=== PATIENT | female | born 1960 | race Caucasian/White ===

== ENCOUNTER 2023-03-17 08:34 | Outpatient (REF) | payer MEDICAID, SELFPAY ==
[2023-03-17 12:15] LABS: TSH reflex Free T4 7.96 uIU/mL (0.32-4.0)
[2023-03-17 13:02] LABS: Free T4 (Free Thyroxine) 1.04 ng/dL (0.71-1.85)
== END 2023-03-17 08:35 | disposition home or self-care (01) ==
LOC: HO.HHCL 08:34
PROVIDERS: Visit Provider Internal Medicine Geriatric Medicine
DX: E03.9 Hypothyroidism, unspecified (principal)
CPT/HCPCS: 36415; 84439; 84443

== ENCOUNTER 2023-11-16 10:38 | Outpatient (REF) | payer MEDICAID, SELFPAY ==
[2023-11-16 11:36] LABS: MANUAL DIFF FLAG NO
[2023-11-16 11:52] LABS: Basophils Absolute Auto 0.1 X10*3/uL (0.0-0.2); Basophils Percent Auto 0.9 % (0-2); Eosinophils Absolute Auto 0.4 X10*3/uL (0.0-0.4); Eosinophils Percent Auto 7.1 % (0-4); Hematocrit 39.3 % (37.0-47.0); Hemoglobin 12.9 g/dl (12.0-16.0); Imm Gran Abs Auto 0.01 X10*3/uL (0.00-0.03); Imm Gran Pct Auto 0.2 % (0.0-0.4); Lymphocytes Absolute Auto 2.2 X10*3/uL (1.2-4.9); Lymphocytes Percent Auto 40.2 % (20-40); Mean Corpuscular HGB Conc 32.8 g/dl (31.0-35.0); Mean Corpuscular Hemoglobin 30.4 pg (27.0-33.0); Mean Corpuscular Volume 92.7 fL (80.0-98.0); Mean Platelet Volume 9.3 fL (9.4-12.3); Monocytes Absolute Auto 0.3 X10*3/uL (0.1-1.2); Monocytes Percent Auto 5.8 % (2-11); Neutrophils Absolute Auto 2.5 x10*3/uL (2.0-8.3); Neutrophils Percent Auto 45.8 % (45-73); Platelet Count 272 X10*3/uL (160-400); Red Blood Count 4.24 X10*6/uL (4.20-5.50); Red Cell Distribution Width 12.9 % (11.0-16.0); White Blood Count 5.5 X10*3/uL (4.8-10.8)
[2023-11-16 17:31] LABS: Alanine Aminotransferase 13 U/L (0-31); Albumin Level 4.2 g/dL (3.5-5.0); Alkaline Phosphatase 57 U/L (39-117); Anion Gap 11 (12-20); Aspartate Amino Transferase 15 U/L (5-31); Bilirubin Total 0.2 mg/dL (0.0-1.0); Blood Urea Nitrogen 18 mg/dL (9-16); Calcium 9.4 mg/dL (8.4-10.2); Carbon Dioxide 26 mmol/L (22-29); Chloride 109 mmol/L (96-108); Cholesterol 210 mg/dL (<200); Estimated Glomerular Filt Rate > 60; Glucose Random 97 mg/dL (60-115); HDL Cholesterol 48 mg/dL (>40); LDL Cholesterol Calculated 147 mg/dL (<100); Potassium 4.7 mmol/L (3.3-5.1); Sodium 141 mmol/L (135-145); Total Protein 7.3 g/dL (6.5-8.0); Triglycerides 78 mg/dL (<150)
== END 2023-11-16 10:39 | disposition home or self-care (01) ==
LOC: HO.HHCL 10:38
PROVIDERS: Visit Provider Internal Medicine Geriatric Medicine
DX: Z00.00 Encounter for general adult medical examination without abnormal findings (principal); Z13.220 Encounter for screening for lipoid disorders; Z13.1 Encounter for screening for diabetes mellitus; E03.9 Hypothyroidism, unspecified
CPT/HCPCS: 36415; 80053; 80061; 84443; 85025

== ENCOUNTER 2024-05-25 09:21 | Outpatient (REF) | payer MEDICAID, SELFPAY ==
[2024-05-25 11:29] LABS: Alanine Aminotransferase 15 U/L (0-31); Albumin Level 4.3 g/dL (3.5-5.0); Alkaline Phosphatase 59 U/L (39-117); Aspartate Amino Transferase 23 U/L (5-31); Bilirubin Direct 0.1 mg/dL (0.0-0.5); Bilirubin Total 0.4 mg/dL (0.0-1.0); Cholesterol 211 mg/dL (<200); HDL Cholesterol 51 mg/dL (>40); LDL Cholesterol Calculated 136 mg/dL (<100); Total Protein 7.4 g/dL (6.5-8.0); Triglycerides 122 mg/dL (<150)
== END 2024-05-25 09:22 | disposition home or self-care (01) ==
LOC: HO.HHCL 09:21
PROVIDERS: Visit Provider Internal Medicine Geriatric Medicine
DX: E78.00 Pure hypercholesterolemia, unspecified (principal)
CPT/HCPCS: 36415; 80061; 80076

== ENCOUNTER 2024-10-16 12:08 | Outpatient (REF) | payer MEDICAID, SELFPAY ==
--- NOTE | ~2024-10-16 | XR_ITS ---
EXAMINATION: XR LUMBAR SPINE 2-3 VIEWS HISTORY: PAIN COMPARISON: There are no prior studies for comparison. FINDINGS: AP, lateral, and coned down views of the lumbar spine are submitted. Osseous mineralization is normal. There is diffuse mild to moderate degenerative disc disease with disc space narrowing and osteophyte formation. Vacuum phenomenon is also seen at multiple levels. 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 The visualized paraspinal soft tissues are unremarkable. XR/XR lumbar spine 2-3V IMPRESSION: Degenerative changes of the lumbar spine as described. Electronically signed by: Rah Price MD 10/16/2024 01:04 PM EDT
--- OUTSIDE RECORDS SUMMARY | 2024-10-16 14:20 | XMS_ITS | Encounter Summary ---
Author Organization [employer] Address [address] [place] [address] [facility] [place] [address] Care Team Providers Care Printed Circuit Board Panels Developer Name Role Phone Juan A Driscoll MD Primary Care Provider [phone] Reason for Referral * Consultation (Routine) - Pending Review Specialty Diagnoses / Procedures Referred By Anahy lares Referred To Contact Physical Therapy Diagnoses Chronic bilateral low back pain without sciatica Juan A Driscoll MD [address] [place] [phone] Phone: tel: fax: Referral ID Status Reason Start Date Expiration Date Visits Requested Visits Authorized [id number] Pending Review Specialty Services Required 10/16/2024 10/16/2025 1 1 Reason for Visit * Reason Comments Hypertension Encounter Details Date Type Department Care Team ([facility] st Contact Info) Description 10/16/2024 11:15 AM EDT Office Visit [facility] [address] [place] [address] [phone] Juan A Driscoll MD [address] [place] [phone] Essential hypertension (Primary Dx); Acquired hypothyroidism; Screen for colon cancer; Encounter for immunization; Chronic bilateral low back pain without sciatica Social History Tobacco Use Types Packs/Day Years Used Date Smoking Tobacco: Never Smokeless Tobacco: Never Tobacco Cessation:Counseling Given: Not Answered Alcohol Use Standard Drinks/Week Comments Never 0 (1 standard drink = 0.6 oz pur e alcohol) Depression Answer Date Recorded Patient Health Questionnaire-9 Score 4 10/16/2024 Patient Health Questionnaire-9 Score 4 10/16/2024 Last PHQ-9: Questionnaire Data Not on file 0 10/16/2024 Housing Stability Answer Date Recorded What is your housing situation today? I have rl king 11/08/[address] you li ve. Do you have problems with any of the following? None of the above 11/08/2023 Food Insecurity Answer Date Recorded Within the past 12 months, y ou worried that your food would run out before you got money to buy more: Never True 11/08/2023 Within the past 12 months,th e food you bought just didn't last and you didn't have enough money to get more: Never True 03/2024 Transportation Answer Date Recorded In the past 12 months, has l ack of transportation kept you from medical appts, meetings, work or from getting things needed for daily living? No 11/08/2023 Utilities Answer Date Recorded In the past 12 months, has t he electric, gas, oil or water company threatened to shut off services in your home? No 11/08/2023 Depression Answer Date Recorded Patient Health Questionnaire-2 Score 0 10/16/2024 Internet Access Answer Date Recorded Internet Access Q1 Yes 10/16/2024 Internet Access Q2 Not on file 10/16/2024 Comments Unknown Sex and Gender Information Value Date Recorded Sex Assigned at Female 06/01/2022 10:29 AM EDT Legal Sex Female 10:29 AM EDT Gender Identity Female 06/01/2022 10:29 AM EDT Sexual Orientation Straight 06/01/2022 10 :29 AM EDT documented as of this encounter Last Filed Vital Signs Vital Sign Reading Time Taken Comments Blood Pressure 135/82 10/16/2024 11:36 AM EDT Pulse 86 10/16/2024 11:08 AM EDT Temperature 37 ??C (98.6 ??F) 10/16/2024 11: 08 AM EDT Respiratory Rate 18 10/16/2024 11:0 8 AM EDT Oxygen Saturation 95% 10/16/2024 11: 08 AM EDT Inhaled Oxygen Concentration - - Weight 65.2 kg (143 lb 12.8 oz) 025 11:08 AM EDT Height 157.5 cm (5' 2 ) 10/16/2024 11:0 8 AM EDT Body Mass Index 26.3 10/16/2024 11:08 AM EDT documented in this encounter Progress Notes * Juan A Driscoll, - 10/16/2024 11:15 AM EDT Subjective Patient ID: Gema Davila is a 64 y.o. female who presents for Hypertension. Patient comes for a follow-up visit. Her BP was initially elevated. Repeat blood pressure was normal. She explains to me that she recently returned from [place]. She was staying in [place] for about 3 months taking care of her sister that unfortunately recently of colon cancer. The patient missed her precolonoscopy appointment with GI because she was in [place]. She denies any GIproblems. She tells me the only medication she is using regularly is her levothyroxine. She stoppedusing her statin for primary pressure of cardiovascular disease and she is encouraged to restart. The patient also complains of several months of low back pain. The patient tells me she slipped andfell on her buttocks while she was staying in [place]. She is having low back pain since then. She describes occasional radiation of the pain to both buttocks. She does not have any weakness, no fevers or chills, no associated GI or complaints. Pain is exacerbated by weightbearing activities and movements of the low back. She tells me she had negative x-rays of the back done in [place]. Review of Systems Constitutional: Negative for chills and fever. HENT: Negative for sore throat. Respiratory: Negative for cough, shortness of breath and wheezing. Cardiovascular: Negative for chest pain, palpitations and leg swelling. Gastrointestinal: Negative for abdominal pain. Musculoskeletal: Positive for back pain. Visit Vitals BP 135/82 Pulse 86 Temp 98.6 ??F (37 ??C) (Temporal) Resp 18 Ht 5' 2 (1.575 m) Wt 143 lb 12.8 oz (65.2 kg) SpO2 95% BMI 26.30 kg/m?? Smoking Status Never BSA 1.69 m?? Objective Physical Exam Constitutional: Appearance: Normal appearance. Cardiovascular: Rate and Rhythm: Normal rate and regular rhythm. Heart sounds: No murmur heard. No gallop. Pulmonary: Effort: Pulmonary effort is normal. No respiratory distress. Breath sounds: Normal breath sounds. No wheezing. Musculoskeletal: Lumbar back: Spasms and tenderness present. Right lower leg: No edema. Left lower leg: No edema. Neurological: Mental Status: She is alert. Motor: No weakness. Gait: Gait normal. Assessment/Plan Diagnoses and all orders for this visit: Essential hypertension Comments: Repeat BP is normal. I did not recommend any medication. In the past she had low blood pressure at home when I put her on antihypertensives. Acquired hypothyroidism Comments: Continue levothyroxine and recheck TSH Orders: - TSH W/Reflex to FT4; Future Screen for colon cancer Comments: Miseed several appointment with GI. She has family history of colon CA. I will have my MA call [facility] to see when she can be seen Encounter for immunization Comments: PCV 20 vaccine today Orders: - PCV-20 VACCINE 6 wks + Chronic bilateral low back pain without sciatica Comments: Referral to physical therapy. X-ray of the lumbar spine prior to PT evaluation Orders: - XR Lumbar Spine Complete 4+ Views; Future - Referral to Physical Therapy; Future documented in this encounter Plan of Treatment Upcoming Encounters Date Type Department Care Team (Late st Contact Info) Description 01/24/2025 10:00 AM EDT Office Visit [facility] [address] [place] [address] Juan A Driscoll MD [address] [place] [address] Scheduled Orders Name Type Priority Associated Diagnoses Orde r Schedule TSH W/Reflex to FT4 Lab Routine Acquired hypothyroidism Expected: 10/16/2024 (Approximate), Expires: 10/16/2025 XR Lumbar Spine Complete 4+ Views Imaging Routine Chronic bilateral low back pain without sciatica Expected: 10/16/2024, Expires: 10/16/2025 Scheduled Referrals Name Type Priority Associated Diagnoses Orde r Schedule Referral to Physical Therapy Outpatient Referral Routine Chronic bilateral low back pain without sciatica Expected: 10/16/2024 (Approximate), Expires: 10/16/2025 documented as of this encounter Goals Goal Patient Goal Type Associated Problems Recent Progress Patient-Stated? Author Blood Pressure < 140/90 Blood Pressure 135/82(2024 11:36 AM EDT) No Johanna Almonte, PharmD Record your blood pressure periodically. Blood Pressure No Johanna Almonte PharmD Note: SMBP two to three times weekly, as directed. documented as of this encounter Visit Diagnoses Diagnosis Essential hypertension- Primary Unspecified essential hypertension Acquired hypothyroidism Unspecified hypothyroidism Screen for colon cancer Special screening for malignant neoplasms, colon Encounter for immunization Chronic bilateral low back pain without sciatica documented in this encounter Additional Health Concerns Assessment Noted Time PHQ-9 Depression Total Score: 4 10/17/19 11:43 AM EDT documented as of this encounter Care Teams Printed Circuit Board Panels Developer Relationship Specialty Start Date End Date Name, MD Juan A [address] [place] [address] PCP - General Family Medicine 08/02/18 documented as of this encounter
--- OUTSIDE RECORDS SUMMARY | 2024-10-16 14:20 | XMS_ITS | Clinical Summary ---
Author Organization [employer] Address [address] [place] [address] 7[address] [place] [address] Care Team Providers Care Scheduling Specialist Name Role Phone Name, Juan A HO Primary Care Provider [phone] Allergies No known active allergies Medications Diclofenac Sodium 1 % gel USE ONCE A DAY ON THE ANTERIOR LEFT KNEE 100 g 2 3 Active levothyroxine (Synthroid, Levoxyl) 112 MCG tablet TAKE 1 TABLET BY MOUTH BEFORE BREAKFAST 90 tablet 3 4 Active atorvastatin (Lipitor) 20 MG tablet Take 1 tablet (20 mg) by mouth Once per day. 30 tablet 11 4 10/17/19 25 Discontinu ed(Non-com pliance) Active Problems Problem Noted Date Diagnosed Date Varicose veins of bilateral lower extremities wi th pain 03/20/2024 High cholesterol 02/29/2024 Venous insufficiency 11/16/2023 Family history of colon cancer 03/16/2023 Essential hypertension 07/19/2022 Mixed incontinence 04/03/2021 DJD (degenerative joint disease) of knee 018 Recurrent major depression in partial remission 10/20/2016 Acquired hypothyroidism 09/25/2015 Resolved Problems Problem Noted Date Diagnosed Date Resolved Date Leg swelling 03/20/2024 10/16/2024 Digital mucous cyst 07/19/2022 11/16/19 24 Encounters Date Type Department Care Team Description 10/16/2024 11:15 AM EDT Office Visit [facility] [address] [place] [address] Name, MD Juan A Essential hypertension (Primary Dx); Acquired hypothyroidism; Screen for colon cancer; Encounter for immunization; Chronic bilateral low back pain without sciatica 10/16/2024 Orders Only [facility] [address] [place] [address] Name, MD Juan A 10/16/2024 Travel from Last 3 Months Immunizations Name Administration Dates Next Due INFLUENZA INJECTABLE QUADRIV ALANT CCIIV4 MDCK Multi-dose vial 06/01/2018 Influenza injectable quadriv alent IIV4 with preservative 07/18/2019 Influenza injectable quadriv alent preservative free 07/22/2021,05/29/2020,05/27/2017,2015,06/17/2015 Influenza, IIV3, injectable 06/17/2015,0 08/29/2012,04/08/2011,2009,08/15/2009 Influenza, seasonal, injecta ble, preservative free 05/09/2024 Pfizer Covid-19 Vaccine 12+ 05/31/2024,1 09/22/2020,12/19/2020,2020 Pfizer Covid-19 Vaccine 12+ Bivalent 10/26/2022 Pneumococcal Conjugate PCV 20 10/16/2024 TD (adult), 2 Lf tetanus tox oid, preservative free, adsorbed 07/18/2019 Tdap 08/15/2007 Zoster, Recombinant 01/19/2023,05/08/2022 Family History Medical History Relation Name Comments Colon cancer Sister Relation Name Status Comments Sister Social History Tobacco Use Types Packs/Day Years [...] Orientation Straight 06/01/2022 10 :29 AM EDT Last Filed Vital Signs Vital Sign Reading [...] Mass Index 26.3 10/16/2024 11:08 AM EDT Plan of Treatment Upcoming Encounters Date Type Department Care Team (Late st Contact Info) Description 01/24/2025 10:00 AM EDT Office Visit [facility] [address] [place] [address] Name, MD Juan A [address] [place] [address] Health Maintenance Due Date Last Done Comments CT Colonography 1959 Colonoscopy 1960 Colorectal Cancer Screening 1960 FIT DNA/Cologuard 1959 FIT 1959 FOBT 1960 Sigmoidoscopy 1959 Alcohol/Substance Use Screening 1971 Mammogram 05/11/2025 05/11/2024, 1004/2023, 02/07/2022 Depression Screening 10/16/2025 10/16/2024, 10/17/19 25 SDOH Screening 10/16/2025 10/16/2024 Tobacco Screening 10/16/2025 10/16/2024 Cervical Cancer Screening 04/03/2026 HPV/Cotest 04/03/2026 04/03/2021 Pap Smear 04/03/2026 04/03/2021 Lipid Panel 05/25/2029 05/25/2024, 10/31, 10/26/2022, Additional history exists DTaP/Tdap/Td Vaccines (3 - Td or Tdap) 07/18/2029 07/18/2019, 08/15/2007 RSV Patients and Patients Aged 60 years or older (1 - 1-dose 75+ series) 2034 Hepatitis C Screening Completed 07/28/2021 Zoster Vaccines Completed 01/19/2023, 05/08/2022 Influenza Vaccine Completed 05/09/2024, , 05/29/2020, Additional history exists COVID-19 Vaccine Completed 05/31/2024, , 02/08/2022, Additional history exists Pneumococcal Vaccine: 50+ Years Completed 10/16/2024 HIB Vaccines Aged Out No longer eligi ble based on patient's age to complete this topic HPV Vaccines Aged Out No longer eligi ble based on patient's age to complete this topic Hepatitis A Vaccines Aged Out No long er eligible based on patient's age to complete this topic Hepatitis B Vaccines Aged Out No long er eligible based on patient's age to complete this topic IPV Vaccines Aged Out No longer eligi ble based on patient's age to complete this topic Meningococcal Vaccine Aged Out No moshe jose j eligible based on patient's age to complete this topic RSV under 20 months Aged Out No longe r eligible based on patient's age to complete this topic Rotavirus Vaccines Aged Out No longer eligible based on patient's age to complete this topic Goals Goal Patient Goal Type Associated Problems Recent Progress Patient-Stated? Author Blood Pressure < 140/90 Blood Pressure 135/82(2024 11:36 AM EDT) No Johanna Almonte PharmD Record your blood pressure periodically. Blood Pressure No Johanna Almonte, Mini Note: SMBP two to three times weekly, as directed. Procedures Procedure Name Priority Date/Time Associated Diagnosis Comments XR LUMBAR SPINE 2-3 VIEWS Routine 10/16/2024 12:09 PM EDT LIPID PANEL, STANDARD Routine 05/25/2024 9:25 AM EDT HM MAMMOGRAPHY Routine 05/11/2024 ZZZ HISTORICAL HEPATITIS C AB W/REFL TO HCV RNA, QN, PCR Routine 07/28/2021 8:36 AM EST HPV MRNA E6/E7 Routine 04/03/2021 10:30 AM EDT THINPREP PAP Routine 04/03/2021 10:30 AM EDT from Last 3 Months or Most Recently Relevant to Health Maintenance Results * XR Lumbar Spine 2-3 Views (10/16/2024 12:09 PM EDT) Anatomical Region Laterality Modality Spine, L-spine Radiographic Kimmy ging 10/16/2024 12:0 9 PM EDT Narrative 10/16/2024 1:07 PM EDT ?[facility] ?[address] ?[place] [address] ?XRay Report ? Signed ? Patient: Jesus Davila,[place] ?MR#: [id number] ?? [id number] ? : 1960 ?Acct:[id number] ? Age/Sex: 64 / F ?ADM Date: 03/17/25 ? Loc: HO.HHCX ? Attending Dr: Juan A Driscoll MD ? Ordering Physician: Juan A Driscoll MD ?? Date of Service: 10/16/24 ?? Procedure(s): XR lumbar spine 2-3V ?? Accession Number(s): [id number] ? cc: Name,Juan A HO ? EXAMINATION: ??XR LUMBAR SPINE 2-3 VIEWS ? HISTORY: PAIN ? COMPARISON: There are no prior studies for comparison. ? FINDINGS: ??AP, lateral, and coned down views of the lumbar spine are ?? submitted. ??Osseous mineralization is normal. ??There is diffuse mild to ?? moderate degenerative disc disease with disc space narrowing and ?? osteophyte formation. ??Vacuum phenomenon is also seen at multiple ?? levels. ??There is osteoarthritis of the lower lumbar facet joints. ??The ?? visualized paraspinal soft tissues are unremarkable. ? XR/XR lumbar spine 2-3V ?? IMPRESSION: ?? Degenerative changes of the lumbar spine as described. ? Electronically signed by: ??Rah Price MD ??10/16/2024 01:04 PM EDT ? Dictated By: ?Rah Price MD ? Signed By: ?<Electronically signed by Rah Price MD in OV> ?10/16/24 1304 ? DD/ 1209 ? TD/TT: 10/16/24 1215 ? Jig Boring Machine Set Up Operator: ? Procedure Note Alejandra, Shagufta - 10/16/2024 [place] [address] XRay Report Signed Patient: eGma HerreraMR#: [id number] : 1960Acct:[id number] Age/Sex: 64 / FADM Date: 10/16/24 Loc: HO.HHCX Attending Dr: Juan A Driscoll MD Ordering Physician: Juan A Driscoll MD Date of Service: 10/16/24 Procedure(s): XR lumbar spine 2-3V Accession Number(s): [id number] cc: Juan A Driscoll MD EXAMINATION: XR LUMBAR SPINE 2-3 VIEWS HISTORY: PAIN COMPARISON: There are no prior studies for comparison. FINDINGS: AP, lateral, and coned down views of the lumbar spine are submitted. Osseous mineralization is normal. There is diffuse mild to moderate degenerative disc disease with disc space narrowing and osteophyte formation. Vacuum phenomenon is also seen at multiple levels. 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 The visualized paraspinal soft tissues are unremarkable. XR/XR lumbar spine 2-3V IMPRESSION: Degenerative changes of the lumbar spine as described. Electronically signed by: Rah Price MD 10/16/2024 01:04 PM EDT RP Dictated By: Rah Price MD Signed By: <Electronically signed by Rah Price MD in OV> 10/16/24 1304 DD/ 1209 TD/TT: 10/16/24 1215 Jig Boring Machine Set Up Operator: us Juan A Driscoll MD IMG XR PROCEDURES Final Result * (ABNORMAL) Lipid Panel, Standard (05/25/2024 9:25 AM EDT) Triglycerides 122 <150 mg/dL [facility] Comment:Desirable Triglyceri de: less than 150 mg/dLBorderline High Triglyceride 150-199 mg/dLHigh Triglyceride: 200-499 mg/dLVery High Triglyceride: greater than or equal to 5OO mg/dL Cholesterol 211(H) <200 mg/dL [facility] Comment:Desirable Cholestero l: less than 200 mg/dLBorderline High Cholesterol: 200-239 mg/dLHigh Cholesterol: greater than 239 mg/dL LDL Cholesterol Calculated 136(H) <100 mg/dL [facility] Comment:Desirable LDL: less than 100 mg/dLNear Optimal/Above Optimal LDL: 110- 129 mg/dLBorderline High LDL: 130-159 mg/dLHigh LDL: 160-189 mg/dLVery High LDL: greater than or equal to 190 mg/dL HDL Cholesterol 51 >40 mg/dL [facility] Comment:Desirable HDL: great er than 40 mg/dL Note: This HDL assay may give artificially low results in patients with liver disease. 05/25/2024 9:25 AM EDT 05/25/2024 10:59 AM EDT us Juan A Driscoll MD LAB BLOOD ORDERABLES Final Resul t [facility] [address] [place] [address] [place] [address] [phone] * Mammography (05/11/2024) Pathologist [facility] Mammogram Normal Normal, Abnormal, BIRADS 1 , BIRADS 2 Anatomical Region Laterality Modality Other 05/11/2024 us Juan A Driscoll MD HEALTH MAINTENANCE Final Result * HEPATITIS C AB W/REFL TO HCV RNA, QN, PCR (07/28/2021 8:36 AM EST) [facility] HEPATITIS C ANTIBODY NON-REACT PELON NON-REACT PELON [facility] INDEX 0.01 <1.00 [facility] Comment: ?? HCV antibody was non-reactive. There is no laboratory ?? evidence of HCV infection. ?? In most cases, no further action is required. However, if recent HCV exposure is suspected, a test for HCV RNA (test code 02016) is suggested. ?? For additional information please refer to http://education.[employer]/faq/JFN67n8 (This link is being provided for informational/ educational purposes only.) ?? 07/28/2021 8:36 AM EST us Juan A Driscoll MD HISTORICAL/NON ORDERABLE LABS Fi nal Result [facility] [address] * THINPREP PAP (04/03/2021 10:30 AM EDT) [facility] Clinical Information: [facility] COMMENT SEE COMMENT [facility] Comment: EXPLANATORY NOTE: ? The Pap is a screening test for cervical cancer. It is ?? not a diagnostic test and is subject to false negative ?? and false positive results. It is most reliable when a ?? satisfactory sample, regularly obtained, is submitted ?? with relevant clinical findings and history, and when ?? the Pap result is evaluated along with historic and ?? current clinical information. ?? Door Maker : SEE COMMENT [facility] Comment: GSG, CT(ASCP) CT screening location: [address] ??[address] Interpretation/R esult: Negative for intraepithelial lesion or malignancy. [facility] LMP: NONE [facility]IVEN [facility] Prev. BX: NONE [facility] Prev. PAP: NONE [facility]IV[facility] SOURCE: None given [facility] Statement Of Adequacy: SEE COMMENT [facility] Comment: Satisfactory for evaluation. Endocervical/transformation zone component present. 04/03/2021 10:3 0 AM EDT Jany [facility] LAB PATHOLOGY ORDERABLES Final Result Performing Organization Address [facility] de Phone Number [facility] [address] * HPV mRNA E6/E7 (04/03/2021 10:30 AM EDT) HPV nRNA E6/E7 Not Detected Not Detected [facility] Comment: Methodology: Transit Survey Worker-Mediated Amplification This assay detects E6/E7 viral messenger RNA (mRNA) from 14 high-risk HPV types (16,18,31,33,35,39,45,51,52,56,58,59,66,68). ? The analytical performance characteristics of this assay have been determined by [employer]. The modifications have not been cleared or approved by the FDA. This assay has been validated pursuant to the CLIA regulations and is used for clinical purposes. ?? For additional information, please refer to http://education.nodishes.co.uk.[employer]/faq/SOZ420k7 (This link if provided for information/ educational purposes only.) 04/03/2021 10:3 0 AM EDT Jany [facility] LAB BLOOD ORDERABLES Katt l Result Performing Organization Address [facility] Co de Phone Number [facility] [address] from Last 3 Months or Most Recently Relevant to Health Maintenance Insurance [facility] , [address] [address] [employer] [place] [employer]AC[employer] PPO Care Teams Scheduling Specialist Relationship Specialty Start Date End Date Name, MD Juan A [address] [place] [id number] PCP - General Family Medicine 08/02/18
--- OUTSIDE RECORDS SUMMARY | 2024-10-16 14:20 | XMS_ITS | Encounter Summary ---
Author Organization [employer] Address [address] [facility] 7t [place] [address] Care Team Providers Care Framing Mechanic Name Role Phone Name, Juan A HO Primary Care Provider [phone] Encounter Details Date Type Department Care Team (Latest Contact Info) Description 10/16/2024 Travel Social History Tobacco Use Types Packs/Day Years Used Date Smoking Tobacco: Never Smokeless Tobacco: Never Alcohol Use Standard Drinks/Week Comments Never 0 [...] AM EDT documented as of this encounter Plan of Treatment Upcoming Encounters Date Type Department Care Team (Late st Contact Info) Description 01/24/2025 10:00 AM EDT Office Visit [facility] [address] [place] [address] Name, MD Juan A [address] [place] [phone] documented as of this encounter Goals Goal Patient Goal Type Associated Problems Recent Progress Patient-Stated? Author Blood Pressure < 140/90 Blood Pressure 135/82(2024 11:36 AM EDT) No Puia, Johanna, PharmD Record your blood pressure periodically. Blood Pressure No Puia, Johanna, PharmD Note: SMBP two to three times weekly, as directed. documented as of this encounter Visit Diagnoses Not on filedocumented in this encounter Additional Health Concerns Assessment Noted Time PHQ-9 Depression Total Score: 4 10/17/19 25 11:43 AM EDT documented as of this encounter Care Teams Framing Mechanic Relationship Specialty Start Date End Date NameJuan A MD [address] [place] [id number] PCP - General Family Medicine 08/02/18 documented as of this encounter
--- OUTSIDE RECORDS SUMMARY | 2024-10-16 14:20 | XMS_ITS | Encounter Summary ---
Author Organization [facility] Address [address] [place] [address] [address] [place] [address] Care Team Providers Care Engrosser Name Role Phone Name, Juan A HO Primary Care Provider [phone] Johanna Almonte PharmD Unavailable [phone] Reason for Referral * Imaging (Routine) - Closed Specialty Diagnoses / Procedures Referred By Anahy lares Referred To Contact Radiology Diagnoses Abnormal mammogram Procedures BI US Breast Complete Right Cinda Worthy FNP Phone: tel: [address] Phone: tel: fax: Referral ID Status Reason Start Date Expiration Date Visits Re quested Visits Authorized [id number] Closed 04/14/2023 04/13/2024 1 1 Reason for Visit * Reason Onset Date Comments Request For Order(s) 04/13/2023 Encounter Details Date Type Department Care Team (Late st Contact Info) Description 04/13/2023 Telephone [facility] MED[facility]INE [address] [place] [address] Name, MD Juan A [address] [place] [address] Request For Order(s) Social History Tobacco Use Types Packs/Day Years Used Date Smoking Tobacco: Never Smokeless Tobacco: Never Alcohol Use Standard Drinks/Week Comments Never 0 (1 standard drink = 0.6 oz pur e alcohol) Depression Answer Date Recorded Patient Health Questionnaire-9 Score 3 10/26/2022 Depression Answer Date Recorded Patient Health Questionnaire-2 Score 2 10/26/2022 Comments Unknown Sex and Gender Information Value Date Recorded Sex Assigned at Female 06/01/2022 10:29 AM EDT Legal Sex Female 10:29 AM EDT Gender Identity Female 06/01/2022 10:29 AM EDT Sexual Orientation Straight 06/01/2022 10 :29 AM EDT documented as of this encounter Miscellaneous Notes * Telephone Encounter - Nikki Nicole - 04/13/2023 9:59 AM EDT Tc from [facility] with [facility] requesting a dx order for right breast ultrasound. States pt willneed to come back for additional views and she did fax mammogram results to [facility] fax number. Please fax order to [phone] Any questions, please contact valentin at [phone] documented in this encounter Plan of Treatment Upcoming Encounters Date Type Department Care Team (Late st Contact Info) Description 01/24/2025 10:00 AM EDT Office Visit [facility] [address] [place] [id number] Name, MD Juan A [address] [place] [address] Scheduled Orders Name Type Priority Associated Diagnoses Orde r Schedule BI US Breast Complete Right Imaging Routine Abnormal mammogram Expected: 04/14/2023, Expires: 06/14/2024 documented as of this encounter Goals Goal Patient Goal Type Associated Problems Recent Progress Patient-Stated? Author Blood Pressure < 140/90 Blood Pressure 135/82(2024 11:36 AM EDT) No Puia, Johanna, PharmD Record your blood pressure periodically. Blood Pressure No Puia, Johanna, PharmD Note: SMBP two to three times weekly, as directed. documented as of this encounter Visit Diagnoses Diagnosis Abnormal mammogram- Primary Abnormal mammogram, unspecified documented in this encounter Additional Health Concerns Assessment Noted Time PHQ-9 Depression Total Score: 3 10/27/19 23 10:21 AM EDT documented as of this encounter Care Teams Engrosser Relationship Specialty Start Date End Date Name, MD Juan A [address] [place] [address] PCP - General Family Medicine 08/02/18 Johanna Almonte PharmD [address] [place] [address] Pharmacist Internal Medicine 04/27/22 05/08/24 documented as of this encounter
--- OUTSIDE RECORDS SUMMARY | 2024-10-16 14:20 | XMS_ITS | Clinical Summary ---
Author Organization [facility] Address [id number] [place] [id number] Care Team Providers Care Ornament Stitcher Name Role Phone Name, Juan A HO Primary Care Provider [phone] Surgical History Surgery Date Site/Laterality Comments TUBAL LIGATION PROCEDURE: HISTORICAL TUBAL LIGATION OTHER SURGICAL HISTORY 2014 PROCEDURE: ---- OTHER ----; COMMENT: cervical disc surgery Medical History Medical History Date Comments Heart disease, unspecified 04/29/2007 DX:He art disease, unspecified Hypothyroidism 08/15/2007 DX:Hypothyroidis m Bunion of great toe 04/03/2014 DX:Bunion of great toe Thyroid disease DX:Thyroid disea se Depression DX:Depression 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) Family History Medical History Relation Name Comments Cataracts Brother Diabetes Brother Hypertension Mother Cataracts Sister 1 Diabetes Sister 2 Blindness Neg Hx Breast cancer Neg Hx Colon cancer Neg Hx Glaucoma Neg Hx Macular degeneration Neg Hx Ovarian cancer Neg Hx Strabismus Neg Hx Relation Name Status Comments Brother Alive Daughter 1 Alive hypothyroidsm Daughter 2 Alive hypothyroidsm Father Mother Sister 1 Alive hypothyroidsm Sister 2 Alive hypothyroidsm Son 1 Alive Son 2 Alive Social History Tobacco Use Types Packs/Day Years Used Date Smoking Tobacco: Never Smokeless Tobacco: Never Alcohol Use Standard Drinks/Week Comments No 0 (1 standard drink = 0.6 oz pur e alcohol) Comments Unknown Sex and Gender Information Value Date Recorded Sex Assigned at Not on file Legal Sex Female 11:39 AM EST Gender Identity Not on file Sexual Orientation Not on file Obstetrics History Plan of Treatment Upcoming Encounters Date Type Department Care Team ([facility] Contact Info) Description 05/25/2025 9:30 AM EDT Appointment Radiology Department [address] [address] Health Maintenance Due Date Last Done Comments Cervical Cancer Screening: Pap Smear 1980 Pneumococcal Vaccine: 50+ Years (1 of 1 - PCV) 2009 Zoster Vaccines (1 of 2) 2009 DTaP,Tdap,and Td Vaccines (2 - Td or Tdap) 08/15/2017 08/15/2007 Colorectal Cancer Screening: Colonoscopy 07/11/2022 Depression Screening 07/11/2022 Hepatitis C Screening 07/11/2022 Osteoporosis Screening (Bone Density Screening) 07/11/2022 Social Influencers of Health Screening 07/11/2022 COVID-19 Vaccine ( season) 2024 Influenza Vaccine (#1) 2024 8, 06/17/2015, 08/29/2012, Additional history exists Falls Risk Assessment 2024 Breast Cancer Screening 05/13/2026 05/13/20 24, 05/13/2024, 05/10/2023, Additional history exists RSV Immunization Patients 60+ Years Old (1 - 1-dose 75+ series) 2034 HIB Vaccines Aged Out No longer eligi [...] on patient's age to complete this topic MMR Vaccines Aged Out No longer eligi ble based on patient's age to complete this topic Meningococcal ACWY Vaccine Aged Out N o longer eligible based on patient's age to complete this topic Meningococcal B Vacine Aged Out No lo nger eligible based on patient's age to complete this topic Pneumococcal Vaccine: Pediatrics (0 to 5 Years) and At-Risk Patients (6 to 64 Years) Aged Out No longer eligible based on patient's age to complete this topic RSV Immunization Patients Under 20 months Aged Out No longer eligible based on patient's age to complete this topic Varicella Vaccines Aged Out No longer eligible based on patient's age to complete this topic Procedures Procedure Name Priority Date/Time Associated Diagnosis Comments SCREENING MAMMOGRAPHY BI 2-VIEW BREAST INC CAD Routine 05/13/2024 1:26 PM EDT Encounter for screening mammogram for malignant neoplasm of breast from Last 3 Months or Most Recently Relevant to Health Maintenance Results * SCREENING MAMMOGRAPHY BI 2-VIEW BREAST INC CAD (05/13/2024 1:26 PM EDT) Anatomical Region Laterality Modality Radiographic Kimmy ging 04/10/2023 2:53 PM EDT Narrative 05/15/2024 7:59 AM EDT This is a summary report. The complete report is available in the patient's medical record. If you cannot access the medical record, please contact the sending organization for a detailed fax or copy. History: -Screening mammogram on April 10, 2023 describes right breast finding for which patient was called back for additional imaging -Callback mammogram/ultrasound on May 10, 2023: Describes a correlate cystic lesion measuring 0.3 x 0.2 x 0.3 cm at 10 o'clock position at 3 cm from the nipple. ??Probably benign. ??BI-RADS 3. ??A 6-month follow-up ultrasound was recommended. -November 16, 2023: 6-month follow-up ultrasound describes 0.3 x 0.3 x 0.3 cm cystic lesion at 10 o'clock position 3 cm from the nipple. ??Probably benign. ??A 6- month follow-up was recommended with mammogram in April 2024. -Today's examination was erroneously scheduled and performed as a screening mammogram. Study: SCREENING MAMMOGRAPHY BI 2-VIEW BREAST INC CAD Technique: Bilateral full-field digital mammography is obtained and read in conjunction with computer aided detection. ??Tomosynthesis as well as 2D C-View imaging were obtained. Comparison: Comparison made to multiple priors, most recent right breast ultrasound on November 15, 2021 for, and most remote September 27, 2014. Breast composition: There are scattered areas of fibroglandular density. Right breast: Previously seen 0.3 cm mass in the upper outer quadrant at approximately 2 to 5 cm from the nipple (MLO and CC ) is unchanged from April 2023. ??No new masses, suspicious calcifications or other abnormalities are seen. Left breast: No suspicious masses, suspicious calcifications or other abnormalities are seen. IMPRESSION: Impression: Currently study was scheduled and performed as a screening mammogram. Right breast: 0.3 cm mass in the upper outer quadrant, unchanged from mammogram from 2022, and correlating with an ultrasound finding described at 10 o'clock position 3 cm from the nipple. ??Probably benign. ??A 12-month follow-up is recommended with bilateral diagnostic mammogram and right breast ultrasound. Left breast: Negative, no specific mammographic evidence of malignancy. ??Normal interval follow-up is recommended in 12 months. BI-RADS: Category 3: Probably benign [facility] [address] [place] [phone] Procedure Note Ap Trevino MD - 06/26/2024 This is a summary report. The complete report is available in thepatient's medical record. If you cannot access the medical record, pleasecontact the sending organization for a detailed fax or copy. History: -Screening mammogram on April 10, 2023 describes right breast findingfor which patient was called back for additional imaging -Callback mammogram/ultrasound on May 10, 2023: Describes a correlatecystic lesion measuring 0.3 x 0.2 x 0.3 cm at 10 o'clock position at 3 cmfrom the nipple. Probably benign. BI-RADS 3. A 6-month follow-upultrasound was recommended. -November 16, 2023: 6-month follow-up ultrasound describes 0.3 x 0.3 x 0.3 cmcystic lesion at 10 o'clock position 3 cm from the nipple. Probablybenign. A 6-month follow-up was recommended with mammogram in April2024. -Today's examination was erroneously scheduled and performed as ascreening mammogram. Study: SCREENING MAMMOGRAPHY BI 2-VIEW BREAST INC CAD Technique: Bilateral full-field digital mammography is obtained and readin conjunction with computer aided detection. Tomosynthesis as well as 2DC-View imaging were obtained. Comparison: Comparison made to multiple priors, most recent right breastultrasound on November 15, 2021 for, and most remote September 27, 2014. Breast composition: There are scattered areas of fibroglandular density. Right breast: Previously seen 0.3 cm mass in the upper outer quadrant atapproximately 2 to 5 cm from the nipple (MLO and CC ) isunchanged from April 2023. No new masses, suspicious calcificationsor other abnormalities are seen. Left breast: No suspicious masses, suspicious calcifications or otherabnormalities are seen. IMPRESSION: Impression: Currently study was scheduled and performed as a screening mammogram. Right breast: 0.3 cm mass in the upper outer quadrant, unchanged frommammogram from 2022, and correlating with an ultrasound finding describedat 10 o'clock position 3 cm from the nipple. Probably benign. A 36-bmowaffsodc-rk is recommended with bilateral diagnostic mammogram and rightbreast ultrasound. Left breast: Negative, no specific mammographic evidence of malignancy.Normal interval follow-up is recommended in 12 months. BI-RADS: Category 3: Probably benign [facility] [address] [place] [phone] Juan A Driscoll MD [facility] XR PROCEDURES Final Result from Last 3 Months or Most Recently Relevant to Health Maintenance Care Teams Ornament Stitcher Relationship Specialty Start Date End Date Name, MD Juan A [address] [place] [address] PCP - General Internal Medicine 04/04/21
--- OUTSIDE RECORDS SUMMARY | 2024-10-16 14:20 | XMS_ITS | Encounter Summary ---
Author Organization [facility] Address [address] [facility] [address] [place] [address] Care Team Providers Care Line Producer Name Role Phone Name, Juan A HO Primary Care Provider [phone] Encounter Details Date Type Department Care Team ([facility] st Contact Info) Description 10/16/2024 Orders Only [facility] MED[facility]INE [address] [place], [place] [phone] Name, MD Juan A [address] [place] [address] Social History Tobacco Use Types Packs/Day Years [...] Description 01/24/2025 10:00 AM EDT Office Visit [facility] [address] [place] [id number] Name, MD Juan A [address] [place] [address] documented as of this encounter Goals Goal Patient Goal Type Associated Problems Recent Progress Patient-Stated? Author Blood Pressure < 140/90 Blood Pressure 135/82(2024 11:36 AM EDT) No Johanna Almonte, PharmD Record your blood pressure periodically. Blood Pressure No Johanna Almonte, PharmD Note: SMBP two to three times weekly, as directed. documented as of this encounter Procedures Procedure Name Priority Date/Time Associated Diagnosis Comments XR LUMBAR SPINE 2-3 VIEWS Routine 10/16/2024 12:09 PM EDT documented in this encounter Results * XR Lumbar Spine 2-3 Views (10/16/2024 12:09 PM EDT) Anatomical Region Laterality Modality Spine, L-spine Radiographic Kimmy ging 10/16/2024 12:0 9 PM EDT Narrative 10/16/2024 1:07 PM EDT ?[facility] [facility] ?[address] ?[place] [address] ?XRay Report ? Signed ? Patient: Lee Davila,Gema ?MR#: [id number] ?? [id number] ? : 1960 ?Acct:[id number] ? Age/Sex: 64 / F ?ADM Date: 10/16/24 ? Loc: HO.HHCX ? Attending Dr: Juan A Driscoll MD ? Ordering Physician: Juan A Driscoll MD ?? Date of Service: 10/16/24 ?? Procedure(s): XR lumbar spine 2-3V ?? Accession Number(s): [id number] ? cc: Juan A Driscoll MD ? EXAMINATION: ??XR LUMBAR SPINE 2-3 VIEWS [...] DD/ 1209 ? TD/TT: 10/16/24 1215 ? Manager Plan: ? Procedure Note Alejandra, Shagufta - 10/16/[address] [address] XRay Report Signed Patient: Gema HerreraMR#: [id number] : 1960Acct:[id number] Age/Sex: 64 / FADM Date: 10/16/24 Loc: HO.HHCX Attending Dr: Juan A Driscoll MD Ordering Physician: Juan A Driscoll MD Date of Service: 10/16/24 Procedure(s): XR lumbar spine 2-3V Accession Number(s): [id number] cc: Juan A Driscoll MD EXAMINATION: XR [...] 10/16/24 1304 DD/ 1209 TD/TT: 10/16/24 1215 Manager Plan: Juan A Driscoll MD IMG XR PROCEDURES Final Result documented in this encounter Visit Diagnoses Not on filedocumented in this encounter Additional Health Concerns Assessment Noted Time PHQ-9 Depression Total Score: 4 10/17/19 25 11:43 AM EDT documented as of this encounter Care Teams Line Producer Relationship Specialty Start Date End Date Juan A Driscoll MD [address] [place] [address] PCP - General Family Medicine 08/02/18 documented as of this encounter
== END 2024-10-16 12:09 | disposition home or self-care (01) ==
LOC: HO.HHCX 12:08
PROVIDERS: Visit Provider Internal Medicine Geriatric Medicine
DX: M54.50 Low back pain, unspecified (principal); G89.29 Other chronic pain
CPT/HCPCS: 72100

== ENCOUNTER → 2024-10-16 12:09 | Outpatient (BNV) | payer MEDICAID, SELFPAY | PROVIDERS: Visit Provider Radiology Diagnostic Radiology | DX: M51.360 Other intervertebral disc degeneration, lumbar region with discogenic back pain only (principal) | CPT/HCPCS: 72100 ==

== ENCOUNTER 2024-10-18 09:17 | Outpatient (REF) | payer MEDICAID, SELFPAY ==
[2024-10-18 12:03] LABS: TSH reflex Free T4 0.82 uIU/mL (0.32-4.0)
== END 2024-10-18 09:18 | disposition home or self-care (01) ==
LOC: HO.HHCL 09:17
PROVIDERS: Visit Provider Internal Medicine Geriatric Medicine
DX: E03.9 Hypothyroidism, unspecified (principal)
CPT/HCPCS: 36415; 84443

== ENCOUNTER 2025-01-24 10:32 | Outpatient (REF) | payer MEDICAID, SELFPAY ==
--- NOTE | ~2025-01-24 | XR_ITS ---
EXAMINATION: XR HIP, LEFT CLINICAL INFORMATION: Chronic anterior hip pain with walking COMPARISON: None available. TECHNIQUE: Two views of the left hip. FINDINGS: Joint space is congruent and not narrowed. There is no evidence of a fracture or deformity. Mild degenerative changes noted in the pubic symphysis joint. Inferior left SI joint demonstrates mild sclerosis and osteophyte formation. XR/XR hip LT min 2V IMPRESSION: Unremarkable left hip. Mild degenerative changes in the left SI joint. Electronically signed by: Darren Rangel MD 01/24/2025 12:05 PM EDT
--- NOTE | ~2025-01-24 | XR_ITS ---
EXAMINATION: XR HIP, RIGHT CLINICAL INFORMATION: Chronic anterior hip pain with walking COMPARISON: None available. TECHNIQUE: Two views of the right hip. FINDINGS: Right hip joint space is congruent and preserved. There are no degenerative changes. Right SI joint injuries mild sclerosis and osteophyte formation. Anterior superior iliac spine enthesophyte is noted. XR/XR hip RT min 2V IMPRESSION: Unremarkable right hip. Mild degenerative changes of the right SI joint. Electronically signed by: Darren Rangel MD 01/24/2025 12:06 PM EDT
--- OUTSIDE RECORDS SUMMARY | 2025-01-24 12:26 | XMS_ITS | Clinical Summary ---
Author Organization [employer] Address [address] [place] [address] 7 [place] [address] Care Team Providers Care Door Puller Name Role Phone NameJuan A MD Primary Care Provider [phone] Allergies No known active allergies Medications Diclofenac Sodium 1 % gel USE ONCE A DAY ON THE ANTERIOR LEFT KNEE 100 g 2 3 Active levothyroxine (Synthroid, Levoxyl) 112 MCG tablet TAKE 1 TABLET BY MOUTH EVERY DAY BEFORE BREAKFAST 90 tablet 3 5 Active Active Problems Problem Noted Date Diagnosed Date [...] Encounters Date Type Department Care Team Description 01/24/2025 10:00 AM EDT Office Visit [facility] [address] [place] [phone] uJan A Driscoll MD Spondylosis of lumbar region without myelopathy or radiculopathy (Primary Dx); Chronic bilateral low back pain without sciatica; Hip pain, unspecified laterality; Elevated blood pressure reading 01/24/2025 Travel 01/23/2025 Telephone [facility] [address] [place] [address] Juan A Driscoll MD Chart Prep 01/16/2025 Patient Outreach [facility] [address] [place] [address] Juan A Driscoll MD Pre-visit Planning (SDOH was already completed) 11/15/2024 Refill [facility] [address] [place] [address] Juan A Driscoll MD 11/06/2024 Orders Only [facility] [address] [place] [address] Provider, MD Jeovany from Last 3 Months Immunizations Immunization Administration Dates Next Due INFLUENZA INJECTABLE QUADRIV [...] Sign Reading Time Taken Comments Blood Pressure 142/82 01/24/2025 10:01 AM EDT Pulse 81 01/24/2025 10:01 AM EDT Temperature 36.4 C (97.5 F) 01/24/2025 10:01 AM EDT Respiratory Rate 12 01/24/2025 10:01 AM EDT Oxygen Saturation 97% 01/24/2025 10:01 AM EDT Inhaled Oxygen Concentration - - Weight 66.2 kg (146 lb) 01/24/2025 10:01 AM EDT Height 157.5 cm (5' 2 ) 01/24/2025 10:01 AM EDT Body Mass Index 26.7 01/24/2025 10:01 AM EDT Plan of Treatment Health Maintenance Due Date Last Done Comments CT Colonography 1960 FIT DNA/Cologuard 1960 FIT 1960 FOBT 1960 Sigmoidoscopy 1960 COVID-19 Vaccine ( season) 2024 05/31/2024, 10/26/2022, 02/08/2022, Additional history exists Mammogram 05/11/2025 05/11/2024, 1004/2023, 02/07/2022 Depression Screening 10/16/2025 10/16/2024, 10/17/19 SDOH Screening 10/16/2025 10/16/2024 Alcohol/Substance Use Screening 01/24/2026 01/24/2025 Tobacco Screening 01/24/2026 01/24/2025 Cervical Cancer Screening 04/03/2026 HPV/Cotest 04/03/2026 04/03/2021 Pap Smear 04/03/2026 04/03/2021 Lipid Panel 05/25/2029 05/25/2024, 10/31, 10/26/2022, Additional history exists DTaP/Tdap/Td Vaccines (3 - Td or Tdap) 07/18/2029 07/18/2019, 08/15/2007 RSV Patients and Patients Aged 60 years or older (1 - 1-dose 75+ series) 2034 Colonoscopy 11/02/2034 11/02/2024 Colorectal Cancer Screening 11/02/2034 Hepatitis C Screening Completed 07/28/2021 Zoster Vaccines Completed 01/19/2023, 05/08/2022 Influenza Vaccine Completed 05/09/2024, , 05/29/2020, Additional history exists Pneumococcal Vaccine: 50+ Years [...] age to complete this topic Meningococcal B Vaccine Aged Out No l onger eligible based on patient's age to complete [...] Author Blood Pressure < 140/90 Blood Pressure 142/82(2024 10:01 AM EDT) No PuJohanna segura, PharmD Record your blood pressure periodically. Blood Pressure No Puia, Johanna, PharmD Note: SMBP two to three times weekly, as directed. Procedures Procedure Name Priority Date/Time Associated Diagnosis Comments XR HIP 2 OR 3 VIEWS RIGHT Routine 01/24/2025 9:59 AM EDT Hip pain, unspecified laterality XR HIP 2 OR 3 VIEWS LEFT Routine 025 9:56 AM EDT Hip pain, unspecified laterality COLONOSCOPY Routine 11/02/2024 12:23 PM EDT AMB REFERRAL TO GASTROENTEROLOGY Routine 11/02/2024 Screen for colon cancer Family history of colon cancer LIPID PANEL, STANDARD Routine 05/25/2024 9:25 AM EDT MAMMOGRAPHY Routine 05/11/2024 ZZZ HISTORICAL HEPATITIS C AB W/REFL TO HCV RNA, QN, PCR Routine 07/28/2021 8:36 AM EST HPV MRNA E6/E7 Routine 04/03/2021 10:30 AM EDT THINPREP PAP Routine 04/03/2021 10:30 AM EDT from Last 3 Months or Most Recently Relevant to Health Maintenance Results * XR Hip 2 or 3 Views Right (01/24/2025 9:59 AM EDT) Anatomical Region Laterality Modality Lower Extremities, Hip Right Radiograp hic Imaging 01/24/2025 9:59 AM EDT Narrative 01/24/2025 12:08 PM EDT [address] [address] XRay Report Signed Patient: Gema Herrera MR#: [id number] : 1960 Acct:[id number] Age/Sex: 64 / F ADM Date: 01/24/25 Loc: HO.HHCX Attending Dr: Juan A Driscoll MD Ordering Physician: Juan A Driscoll MD Date of Service: 01/24/25 Procedure(s): XR hip RT min 2V Accession Number(s): [id number] cc: Juan A Driscoll MD EXAMINATION: XR HIP, RIGHT CLINICAL INFORMATION: Chronic anterior hip pain with walking COMPARISON: None available. TECHNIQUE: Two views of the right hip. FINDINGS: Right hip joint space is congruent and preserved. There are no degenerative changes. Right SI joint injuries mild sclerosis and osteophyte formation. Anterior superior iliac spine enthesophyte is noted. XR/XR hip RT min 2V IMPRESSION: Unremarkable right hip. Mild degenerative changes of the right SI joint. Electronically signed by: Darren Rangel MD 01/24/2025 12:06 PM EDT Dictated By: Darren Rangel MD Signed By: <Electronically signed by Darren Rangel MD in OV> 01/24/25 1206 DD/ 0959 TD/TT: 01/24/25 1000 Solar Sales Rep: Procedure Note Donotuseinterpreter, Image - 01/24/[address] [address] XRay Report Signed Patient: Gema HerreraMR#: [id number] : 1960Acct:[id number] Age/Sex: 64 / FADM Date: 01/24/25 Loc: HO.HHCX Attending Dr: Juan A Driscoll MD Ordering Physician: Juan A Driscoll MD Date of Service: 01/24/25 Procedure(s): XR hip RT min 2V Accession Number(s): [id number] cc: Juan A Driscoll MD EXAMINATION: XR HIP, RIGHT CLINICAL INFORMATION: Chronic anterior hip pain with walking COMPARISON: None available. TECHNIQUE: Two views of the right hip. FINDINGS: Right hip joint space is congruent and preserved. There are no degenerative changes. Right SI joint injuries mild sclerosis and osteophyte formation. Anterior superior iliac spine enthesophyte is noted. XR/XR hip RT min 2V IMPRESSION: Unremarkable right hip. Mild degenerative changes of the right SI joint. Electronically signed by: Darren Rangel MD 01/24/2025 12:06 PM EDT Dictated By: Darren Rangel MD Signed By: <Electronically signed by Darren Rangel MD in OV> 01/24/25 1206 DD/ 0959 TD/TT: 01/24/25 1000 Solar Sales Rep: Juan A Driscoll MD IMG XR PROCEDURES Final Result * XR Hip 2 or 3 Views Left (01/24/2025 9:56 AM EDT) Anatomical Region Laterality Modality Lower Extremities, Hip Left Radiograp hic Imaging 01/24/2025 9:56 AM EDT Narrative 01/24/2025 12:08 [place] [address] XRay Report Signed Patient: Gema Herrera MR#: [id number] : 1960 Acct:[id number] Age/Sex: 64 / F ADM Date: 01/24/25 Loc: HO.HHCX Attending Dr: Juan A Driscoll MD Ordering Physician: Juan A Dricsoll MD Date of Service: 01/24/25 Procedure(s): XR hip LT min 2V Accession Number(s): [id number] cc: Juan A Driscoll MD EXAMINATION: XR HIP, LEFT CLINICAL INFORMATION: Chronic anterior hip pain with walking COMPARISON: None available. TECHNIQUE: Two views of the left hip. FINDINGS: Joint space is congruent and not narrowed. There is no evidence of a fracture or deformity. Mild degenerative changes noted in the pubic symphysis joint. Inferior left SI joint demonstrates mild sclerosis and osteophyte formation. XR/XR hip LT min 2V IMPRESSION: Unremarkable left hip. Mild degenerative changes in the left SI joint. Electronically signed by: Darren Rangel MD 01/24/2025 12:05 PM EDT RP Dictated By: Darren Rangel MD Signed By: <Electronically signed by Darren Rangel MD in OV> 01/24/25 1205 DD/ 0956 TD/TT: 01/24/25 1000 Solar Sales Rep: Procedure Note Donotuseinterpreter, Image - 01/24/[address] [address] XRay Report Signed Patient: Gema HerreraMR#: [id number] : 1960Acct:[id number] Age/Sex: 64 / FADM Date: 01/24/25 [facility]: Juan A Driscoll MD Ordering Physician: Juan A Driscoll MD Date of Service: 01/24/25 Procedure(s): XR hip LT min 2V Accession Number(s): [id number] cc: Juan A Driscoll MD EXAMINATION: XR HIP, LEFT CLINICAL INFORMATION: Chronic anterior hip pain with walking COMPARISON: None available. TECHNIQUE: Two views of the left hip. FINDINGS: Joint space is congruent and not narrowed. There is no evidence of a fracture or deformity. Mild degenerative changes noted in the pubic symphysis joint. Inferior left SI joint demonstrates mild sclerosis and osteophyte formation. XR/XR hip LT min 2V IMPRESSION: Unremarkable left hip. Mild degenerative changes in the left SI joint. Electronically signed by: Darren Rangel MD 01/24/2025 12:05 PM EDT RP Dictated By: Darren Rangel MD Signed By: <Electronically signed by Darren Rangel MD in OV> 01/24/25 1205 DD/ 0956 TD/TT: 01/24/25 1000 Solar Sales Rep: Juan A Driscoll MD IMG XR PROCEDURES Final Result * Hm Colonoscopy (11/02/2024 12:23 PM EDT) [facility] Provider HEALTH MAINTENANCE Final Result * Referral to Gastroenterology (11/02/2024) us Juan A Driscoll MD OUTPATIENT REFERRAL ORDERABLES F inal Result * (ABNORMAL) Lipid Panel, Standard (05/25/2024 9:25 AM EDT) Pathologist [facility] Triglycerides 122 <150 mg/dL [facility] Comment:Desirable Triglyceri de: less than 150 mg/dLBorderline High Triglyceride 150-199 mg/dLHigh Triglyceride: 200-499 mg/dLVery High Triglyceride: greater than or equal to 5OO mg/dL Cholesterol 211(H) <200 mg/dL [facility] Comment:Desirable Cholestero l: less than 200 mg/dLBorderline High Cholesterol: 200-239 mg/dLHigh Cholesterol: greater than 239 mg/dL LDL Cholesterol Calculated 136(H) <100 mg/dL [facility] Comment:Desirable LDL: less than 100 mg/dLNear Optimal/Above Optimal LDL: 110- 129 mg/dLBorderline High LDL: 130-159 mg/dLHigh LDL: 160-189 mg/dLVery High LDL: greater than or equal to 190 mg/dL HDL Cholesterol 51 >40 mg/dL [facility] Comment:Desirable HDL: great er than 40 mg/dL Note: This HDL assay may give artificially low results in patients with liver disease. 05/25/2024 9:25 AM EDT 05/25/2024 10:59 AM EDT us Juan A Driscoll MD LAB BLOOD ORDERABLES Final Resul t [facility] [address] [place] [phone] * Mammography (05/11/2024) Pathologist [facility] Mammogram Normal Normal, Abnormal, BIRADS 1 , BIRADS 2 Anatomical Region Laterality Modality Other 05/11/2024 us Juan A Driscoll MD HEALTH MAINTENANCE Final Result * HEPATITIS C AB W/REFL TO HCV RNA, QN, PCR (07/28/2021 8:36 AM EST) HEPATITIS C ANTIBODY NON-REACT PELON NON-REACT PELON [facility] INDEX 0.01 <1.00 [facility] Comment: HCV antibody was non-reactive. There is no laboratory evidence of HCV infection. In most cases, no further action is required. However, if recent HCV exposure is suspected, a test for HCV RNA (test code 68680) is suggested. For additional information please refer to http://education.[employer]/faq/DTS87d3 (This link is being provided for informational/ educational purposes only.) 07/28/2021 8:36 AM EST us Juan A Driscoll MD HISTORICAL/NON ORDERABLE LABS Fi nal Result [facility] [address] * THINPREP PAP (04/03/2021 10:30 AM EDT) Pathologist [facility] Clinical Information: BC [facility] COMMENT SEE COMMENT [facility] Comment: EXPLANATORY NOTE: The Pap is a screening test for cervical cancer. It is not a diagnostic test and is subject to false negative and false positive results. It is most reliable when a satisfactory sample, regularly obtained, is submitted with relevant clinical findings and history, and when the Pap result is evaluated along with historic and current clinical information. Scudding Inspector : SEE COMMENT [facility] Comment: GSG, CT(ASCP) CT screening location: [place] [address] Interpretation/R esult: Negative for intraepithelial lesion or malignancy. [facility] LMP: NONE [facility] Prev. BX: NONE [facility] Prev. PAP: NONE [facility]IV[facility] SOURCE: None given [facility] Statement Of Adequacy: SEE COMMENT [facility] Comment: Satisfactory for evaluation. Endocervical/transformation zone component present. 04/03/2021 10:3 0 AM EDT [facility] PATHOLOGY ORDERABLES Final Result Performing Organization Address [facility] Co de Phone Number [facility] [address] * HPV mRNA E6/E7 (04/03/2021 10:30 AM EDT) HPV nRNA E6/E7 Not Detected Not Detected [facility] Comment: Methodology: Rn Cardiovascular-Mediated Amplification This assay detects E6/E7 viral messenger RNA (mRNA) from 14 high-risk HPV types (16,18,31,33,35,39,45,51,52,56,58,59,66,68). The analytical performance characteristics of this assay have been determined by [email or web address]. The modifications have not been cleared or approved by the FDA. This assay has been validated pursuant to the CLIA regulations and is used for clinical purposes. For additional information, please refer to http://education.[employer]/faq/OYL757j1 (This link if provided for information/ educational purposes only.) 04/03/2021 10:3 0 AM EDT [facility] BLOOD ORDERABLES Katt l Result Performing Organization Address [facility] de Phone Number [facility] [address] from Last 3 Months or Most Recently Relevant to Health Maintenance Insurance [facility] MEDICARE REPLACEMENT PPO Care Teams Door Puller Relationship Specialty Start Date End Date Name, MD Juan A [address] [place] [phone] PCP - General Family Medicine 08/02/18
== END 2025-01-24 10:33 | disposition home or self-care (01) ==
LOC: HO.HHCX 10:32
PROVIDERS: PCP Internal Medicine Geriatric Medicine; Visit Provider Internal Medicine Geriatric Medicine
DX: M25.569 Pain in unspecified knee (principal); G89.29 Other chronic pain
CPT/HCPCS: 73502

== ENCOUNTER → 2025-01-24 10:37 | Outpatient (BNV) | payer MEDICAID, SELFPAY | PROVIDERS: PCP Internal Medicine Geriatric Medicine; Visit Provider Radiology Diagnostic Radiology | DX: M16.10 Unilateral primary osteoarthritis, unspecified hip (principal) | CPT/HCPCS: 73502 ==

== ENCOUNTER 2025-06-27 09:02 | Outpatient (REF) | payer MEDICARE, SELFPAY ==
--- OUTSIDE RECORDS SUMMARY | 2025-06-27 09:43 | XMS_ITS ---
Author Name [facility] Organization Unknown Care Team Organization Name Specialty Phone Email Start Date End Da indra [facility] Michelle Donald [facility] 06/01/2023 024
--- OUTSIDE RECORDS SUMMARY | 2025-06-27 09:43 | XMS_ITS | Clinical Summary ---
Author Organization [employer] Address [address] [place] [address] 7[address] [place] [address] Care Team Providers Care Printing Equipment Mechanic Name Role Phone Name, Juan A HO Primary Care Provider [phone] Allergies No known active allergies Medications Diclofenac Sodium 1 % gel USE ONCE A DAY ON THE ANTERIOR LEFT KNEE 100 g 2 3 Active levothyroxine (Synthroid, Levoxyl) 112 MCG tablet TAKE 1 TABLET BY MOUTH EVERY DAY BEFORE BREAKFAST 90 tablet 3 5 Active lisinopril 2.5 MG tablet Take 1 tablet (2.5 mg) by mouth Once per day. 30 tablet 11 5 06/20/20 26 Active Active Problems Problem Noted Date Diagnosed [...] Encounters Date Type Department Care Team Description 06/20/2025 10:45 AM EST Office Visit [facility] [address] [place] [address] Name, MD Juan A Essential hypertension (Primary Dx); Acquired hypothyroidism; DJD (degenerative joint disease), lumbosacral; Chronic bilateral low back pain without sciatica; High cholesterol; Health care maintenance; Encounter for immunization 06/20/2025 Travel 06/19/2025 Telephone [facility] [address] [place], [place] [phone] Camilo Skinner MA chart prep 06/19/2025 Travel from Last 3 Months Immunizations Immunization Administration Dates Next Due INFLUENZA INJECTABLE QUADRIV ALANT CCIIV4 MDCK Multi-dose vial 06/01/2018 Influenza injectable quadriv alent IIV4 with preservative 07/18/2019 Influenza injectable quadriv alent preservative free 07/22/2021,05/29/2020,05/27/2017,2015,06/17/2015 Influenza, High Dose Seasona l, Preservative Free 06/20/2025 Influenza, IIV3, injectable 06/17/2015,0 08/29/2012,04/08/2011,2009,08/15/2009 Influenza, seasonal, injecta ble, preservative free 05/09/2024 Pfizer Covid-19 Vaccine 12+ 05/31/2024,1 09/22/2020,12/19/2020,2020 Pfizer Covid-19 Vaccine 12+ Bivalent 10/26/2022 Pneumococcal Conjugate PCV 20 10/16/2024 TD (adult), 2 Lf tetanus tox oid, preservative free, adsorbed 07/18/2019 Tdap 08/15/2007 Zoster, Recombinant 01/19/2023,05/08/2022 Family History Medical History Relation Name Comments Colon cancer Sister Relation Name Status Comments Maternal Cousin Colon Cancer Sister Social History Tobacco Use Types Packs/Day [...] your housing situation today? I have rl sing 11/08/[address] you li [...] Sign Reading Time Taken Comments Blood Pressure 141/93 06/20/2025 11:13 AM EST Pulse 85 06/20/2025 10:53 AM EST Temperature 35.7 C (96.2 F) 06/20/2025 10:53 AM EST Respiratory Rate 18 06/20/2025 10:53 AM EST Oxygen Saturation 97% 06/20/2025 10:53 AM EST Inhaled Oxygen Concentration - - Weight 69.9 kg (154 lb 3.2 oz) 06/20/2025 10:53 AM EST Height 157.5 cm (5' 2 ) 06/20/2025 10:53 AM EST Body Mass Index 28.2 06/20/2025 10:53 AM EST Plan of Treatment Upcoming Encounters Date Type Department Care Team (Late st Contact Info) Description 07/04/2025 11:00 AM EST Telemedicine [facility] [address] [place] [address] 09/24/2025 11:30 AM EST Office Visit [facility] [address] [place] [address] Name, MD Juan A [address] [place] [address] Health Maintenance Due Date Last Done Comments CT Colonography 1959 FIT DNA/Cologuard 1959 FIT 1959 FOBT 1959 Sigmoidoscopy 1959 COVID-19 Vaccine ( season) 2025 05/31/2024, 10/26/2022, 02/08/2022, Additional history exists Depression Screening 10/16/2025 10/16/2024, 10/17/19 SDOH Screening 10/16/2025 10/16/2024 Alcohol/Substance Use Screening 01/24/2026 01/24/2025 Cervical Cancer Screening 04/03/2026 HPV/Cotest 04/03/2026 04/03/2021 Pap Smear 04/03/2026 04/03/2021 Mammogram 05/30/2026 05/30/2025, 05/03, 05/11/2024, Additional history exists Tobacco Screening 06/20/2026 06/20/2025 Lipid Panel 05/25/2029 05/25/2024, 10/31, 10/26/2022, Additional history exists DTaP/Tdap/Td Vaccines (3 - Td or Tdap) 07/18/2029 07/18/2019, 08/15/2007 RSV Patients and Patients Aged 60 years or older (1 - 1-dose 75+ series) 2034 Colonoscopy 11/02/2034 11/02/2024 Colorectal Cancer Screening 11/02/2034 Hepatitis C Screening Completed 07/28/2021 Zoster Vaccines Completed 01/19/2023, 05/08/2022 Pneumococcal Vaccine: 50+ Years Completed 10/16/2024 Influenza Vaccine Completed 06/20/2025, , 07/22/2021, Additional history exists HIB Vaccines Aged Out No longer eligi [...] Author Blood Pressure < 140/90 Blood Pressure 141/93(2024 11:13 AM EST) No Johanna Almonte PharmD Record your blood pressure periodically. Blood Pressure No Johanna Almonte PharmD Note: SMBP two to three times weekly, as directed. Procedures Procedure Name Priority Date/Time Associated Diagnosis Comments COLONOSCOPY Routine 11/02/2024 12:23 PM EDT LIPID PANEL, STANDARD Routine 05/25/2024 9:25 AM EDT MAMMOGRAPHY Routine 05/11/2024 ZZZ HISTORICAL HEPATITIS C AB W/REFL TO HCV RNA, QN, PCR Routine 07/28/2021 8:36 AM EST HPV MRNA E6/E7 Routine 04/03/2021 10:30 AM EDT THINPREP PAP Routine 04/03/2021 10:30 AM EDT from Last 3 Months or Most Recently Relevant to Health Maintenance Results * Colonoscopy (11/02/2024 12:23 PM EDT) us Historical Provider MD HEALTH MAINTENANCE Final Result * (ABNORMAL) Lipid Panel, Standard (05/25/2024 9:25 AM EDT) Triglycerides 122 <150 mg/dL [facility] Comment:Desirable Triglyceri de: less than 150 mg/dLBorderline High Triglyceride 150-199 mg/dLHigh Triglyceride: 200-499 mg/dLVery High Triglyceride: greater than or equal to 5OO mg/dL Cholesterol 211(H) <200 mg/dL [facility] Comment:Desirable Cholestero l: less than 200 mg/dLBorderline High Cholesterol: 200-239 mg/dLHigh Cholesterol: greater than 239 mg/dL LDL Cholesterol Calculated 136(H) <100 mg/dL [facility] Comment:Desirable LDL: less than 100 mg/dLNear Optimal/Above Optimal LDL: 110- 129 mg/dLBorderline High LDL: 130-159 mg/dLHigh LDL: 160-189 mg/dLVery High LDL: greater than or equal to 190 mg/dL HDL Cholesterol 51 >40 mg/dL [facility] Comment:Desirable HDL: great er than 40 mg/dL Note: This HDL assay may give artificially low results in patients with liver disease. 05/25/2024 9:25 AM EDT 05/25/2024 10:59 AM EDT us Juan A Name LAB BLOOD ORDERABLES Final Resul t [facility] [address] [place] [phone] * HEPATITIS C AB W/REFL TO HCV RNA, QN, PCR (07/28/2021 8:36 AM EST) HEPATITIS C ANTIBODY NON-REACT PELON NON-REACT PELON [facility] INDEX 0.01 <1.00 [facility] Comment: HCV antibody was non-reactive. There is no laboratory evidence of HCV infection. In most cases, no further action is required. However, if recent HCV exposure is suspected, a test for HCV RNA (test code 67725) is suggested. For additional information please refer to http://education.ADMETA/faq/ILD91q6 (This link is being provided for informational/ educational purposes only.) 07/28/2021 8:36 AM EST Juan A Driscoll MD HISTORICAL/NON ORDERABLE LABS Fi nal Result Performing Organization Address [facility] Co de Phone Number [facility] [address] * THINPREP PAP (04/03/2021 10:30 AM EDT) Clinical Information: [facility] COMMENT SEE COMMENT [facility] [...] along with historic and current clinical information. Production Support Analyst : SEE COMMENT [facility] Comment: GSG, CT(ASCP) CT screening location: [place] [address] Interpretation/R esult: Negative for intraepithelial lesion or malignancy. [facility] LMP: NONE [facility]IV[facility] Prev. BX: NONE [facility]IV[facility] Prev. PAP: NONE [facility]IV[facility] SOURCE: None given [facility] Statement Of Adequacy: SEE COMMENT [facility] Comment: Satisfactory for evaluation. Endocervical/transformation zone component present. 04/03/2021 10:3 0 AM EDT Jany [facility] LAB PATHOLOGY ORDERABLES Final Result Performing Organization Address [facility] Co de Phone Number [facility] [address] [place] [address], * HPV mRNA E6/E7 (04/03/2021 10:30 AM EDT) HPV nRNA E6/E7 Not Detected Not Detected [facility] Comment: Methodology: Home Care Liaison-Mediated Amplification This assay detects E6/E7 viral messenger RNA (mRNA) from 14 high-risk HPV types (16,18,31,33,35,39,45,51,52,56,58,59,66,68). The analytical performance characteristics of this assay have been determined by [employer]. The modifications have not been cleared or approved by the FDA. This assay has been validated pursuant to the CLIA regulations and is used for clinical purposes. For additional information, please refer to http://education.Xylo.[employer]/faq/HRM763m2 (This link if provided for information/ educational purposes only.) 04/03/2021 10:3 0 AM EDT us Jany SEYMOURM LAB BLOOD ORDERABLES Katt ivey Result [facility] [address] from Last 3 Months or Most Recently Relevant to Health Maintenance Insurance [employer] [place] [employer] PPO Care Teams Printing Equipment Mechanic Relationship Specialty Start Date End Date Name, MD Juan A [address] [place] [address] PCP - General Family Medicine 08/02/18
--- OUTSIDE RECORDS SUMMARY | 2025-06-27 09:43 | XMS_ITS | Encounter Summary ---
Author Organization [employer] Address [address] [place] [address] 7t [place] [address] Care Team Providers Care Clean Energy Policy Analyst Name Role Phone Name, Juan A HO Primary Care Provider [phone] Johanna Almonte PharmD Unavailable [phone] Reason for Referral * Imaging (Routine) - Closed Specialty Diagnoses / Procedures Referred By Anahy lares Referred To Contact Radiology Diagnoses Abnormal mammogram Procedures BI US Breast Complete Right Cinda Worthy FNP [address] Phone: tel: fax: Referral ID Status Reason Start Date Expiration Date Visits Re quested Visits Authorized [id number] Closed 04/14/2023 04/13/2024 1 1 Reason for Visit * Reason Onset Date Comments Request For Order(s) 04/13/2023 Encounter Details Date Type Department Care Team ([facility] st Contact Info) Description 04/13/2023 Telephone [facility] [address] [place] [address] Name, MD Juan A [address] [place] [address] Request For Order(s) Social History Tobacco Use [...] - 04/13/2023 9:59 AM EDT Tc from valentin with [facility] requesting a dx order for right breast ultrasound. States pt willneed to come back for additional views and she did fax mammogram results to [facility] fax number. Please fax order to [phone] Any questions, please contact valentin at [phone] documented in this encounter Plan of Treatment Upcoming Encounters Date Type Department Care Team (Late st Contact Info) Description 07/04/2025 11:00 AM EST Telemedicine [facility] [address] [place] [address] 09/24/2025 11:30 AM EST Office Visit [facility] [address] [place] [phone] Name, MD Juan A [address] [place] [phone] Scheduled Orders Name Type Priority Associated Diagnoses Orde r Schedule BI US Breast Complete Right Imaging Routine Abnormal mammogram Expected: 04/14/2023, Expires: 06/14/2024 documented as of this encounter Goals Goal Patient Goal Type Associated Problems Recent Progress Patient-Stated? Author Blood Pressure < 140/90 Blood Pressure 141/93(2024 11:13 AM EST) No Puia, Johanna, PharmD Record your blood [...] documented as of this encounter Care Teams Clean Energy Policy Analyst Relationship Specialty Start Date End Date Name, MD Juan A [address] [place] [address] PCP - General Family Medicine 08/02/18 Johanna Almonte PharmD [address] [place] [address] Pharmacist Internal Medicine 04/27/22 05/08/24 documented as of this encounter
--- OUTSIDE RECORDS SUMMARY | 2025-06-27 09:43 | XMS_ITS | Encounter Summary ---
Author Organization [employer] Address [address] [place] [address] 7 [place] [address] Care Team Providers Care Corrections Specialist Name Role Phone Name, Juan A HO Primary Care Provider [phone] Encounter Details Date Type Department Care Team (Late st Contact Info) Description 11/06/2024 Orders Only [facility] [address] [place] [address] ProviderJeovany MD Social History Tobacco Use Types Packs/Day Years [...] Info) Description 07/04/2025 11:00 AM EST Telemedicine [facility] [address] [place] [address] 09/24/2025 11:30 AM EST Office Visit [facility] [address] [place] [address] Name, MD Juan A [address] [place] [address] documented as of this encounter Goals Goal [...] documented as of this encounter Care Teams Corrections Specialist Relationship Specialty Start Date End Date Name, MD Juan A [address] [place] [address] PCP - General Family Medicine 08/02/18 documented as of this encounter
--- OUTSIDE RECORDS SUMMARY | 2025-06-27 09:43 | XMS_ITS | Clinical Summary ---
Author Organization [address] Address [address] [place] [address] Phone Care Team Providers Care Bone Char Puller Name Role Phone Name, Juan A HO Primary Care Provider [phone] Encounters Date Type Department Care Team Description 05/30/2025 10:19 AM EDT - 05/30/2025 11:59 PM EDT Hospital Encounter Radiology Department [address] [phone] Abnormal mammogram Discharge Disposition: Home or Self Care 05/30/2025 10:19 AM EDT - 05/30/2025 11:59 PM EDT Hospital Encounter Radiology Department - [address] [phone] Abnormal mammogram Discharge Disposition: Home or Self Care from Last 3 Months Surgical History Surgery Date Site/Laterality Comments TUBAL [...] Sexual Orientation Not on file Obstetrics History Para Term AB IAB SAB Ectopic Multiple Livin g Live Births 4 4 4 4 Date Outcome GA Total Labor Labor/2nd/3rd Weight Sex Type Anes PTL Trang A1 A5 Name Clin Term Term Term Term Plan of Treatment Health Maintenance Due Date Last Done Comments Colorectal Cancer Screening: Colonoscopy 1959 Cervical Cancer Screening: Pap Smear 1980 Hepatitis C Screening 07/11/2022 Osteoporosis Screening (Bone Density Screening) 07/11/2022 Social Influencers of Health Screening 07/11/2022 Depression Screening 08/02/2024 Falls Risk Assessment 2024 COVID-19 Vaccine ( season) 2025 05/31/2024, 10/26/2022, 02/08/2022, Additional history exists Influenza Vaccine (#1) 2025 , 07/22/2021, 05/29/2020, Additional history exists Hypertension/CHF/CAD Annual BMP Blood Test 05/30/2025 Breast Cancer Screening 05/30/2027 05/30/20 25, 05/13/2024, 05/13/2024, Additional history exists Cholesterol Screening (Lipid Panel) 05/25/2029 05/25/2024 DTaP,Tdap,and Td Vaccines (3 - Td or Tdap) 07/18/2029 07/18/2019, 08/15/2007 RSV Immunization Adult Patients (1 - 1-dose 75+ series) 2034 Zoster Vaccines Completed 01/19/2023, 05/08/2022 Pneumococcal Vaccine: 50+ Years Completed 10/16/2024 HIB [...] Procedure Name Priority Date/Time Associated Diagnosis Comments US BREAST LIMITED RIGHT Routine 05/30/2025 10:51 AM EDT Abnormal mammogram MG MAMMO DIGITAL DIAGNOSTIC W VIDAL BILAT Routine 05/30/2025 10:30 AM EDT Abnormal mammogram from Last 3 Months Results * US Breast Limited Right (05/30/2025 10:51 AM EDT) Anatomical Region Laterality Modality Breast Right Ultrasound 05/30/2025 10:5 2 AM EDT Impressions 05/30/2025 11:21 AM EDT Interval decrease in size of from tiny 2 mm cystic lesion in the right breast. No new suspicious abnormalities. Follow-up mammogram is recommended in one year returning to the annual screening. Findings and recommendations were conveyed to the patient. BI-RADS CATEGORY: 2 - BENIGN RECOMMENDATION: Return to annual mammography. Return to annual mammography. Mammo Location: [facility], [address] [place] [address], [phone], . -------- FINAL REPORT -------- Dictated By: Toshia Mittal Dictated Date: 05/30/2025 10:52 ET Assigned Physician: Toshia Mittal Reviewed and Electronically Signed By: Toshia Mittal Signed Date: 05/30/2025 11:21 ET Workstation ID: [id number] Transcribed By: Self Edit Transcribed Date: 05/30/2025 10:52 ET Narrative 05/30/2025 11:21 AM EDT Bilateral diagnostic mammogram. Targeted right breast ultrasound. CLINICAL: 64 years old, Female, tiny focal asymmetry in the right breast with corresponding mildly complex cystic lesion at 10 o'clock on ultrasound. COMPARISON: Prior examinations, latest from 05/15/2024. FINDINGS: MAMMOGRAPHY TECHNIQUE: Bilateral MLO and CC views were obtained digitally with 2-D C views and 3-D mammogram (digital breast tomosynthesis). Computer-aided detection was utilized in evaluation of this exam (CAD). Tiny focal asymmetry in the right upper outer breast appears to be significantly smaller than on previous examination. There is no evidence of new suspicious mass or architectural distortion. No worrisome calcifications are evident. BREAST DENSITY: B - There are scattered areas of fibroglandular density. ULTRASOUND TECHNIQUE: Targeted ultrasound of the right upper outer breast was performed with attention to the area at 10 o'clock. There is arm interval decrease in size or mildly complex cystic lesion at 10 o'clock, which on today's study measuring 0.2 x 0.2 x 0.2 cm. There is no evidence of morphologically suspicious mass Procedure Note Toshia Mittal MD - 05/30/2025 Bilateral diagnostic mammogram. Targeted right breast ultrasound. CLINICAL: 64 years old, Female, tiny focal asymmetry in the right breastwith corresponding mildly complex cystic lesion at 10 o'clock onultrasound. COMPARISON: Prior examinations, latest from 05/15/2024. FINDINGS: MAMMOGRAPHY TECHNIQUE: Bilateral MLO and CC views were obtained digitally with 2-D Cviews and 3-D mammogram (digital breast tomosynthesis). Computer-aideddetection was utilized in evaluation of this exam (CAD). Tiny focal asymmetry in the right upper outer breast appears to besignificantly smaller than on previous examination. There is no evidence of new suspicious mass or architectural distortion.No worrisome calcifications are evident. BREAST DENSITY: B - There are scattered areas of fibroglandular density. ULTRASOUND TECHNIQUE: Targeted ultrasound of the right upper outer breast wasperformed with attention to the area at 10 o'clock. There is arm interval decrease in size or mildly complex cystic lesion at10 o'clock, which on today's study measuring 0.2 x 0.2 x 0.2 cm. There is no evidence of morphologically suspicious mass IMPRESSION: Interval decrease in size of from tiny 2 mm cystic lesion in the rightbreast. No new suspicious abnormalities. Follow-up mammogram isrecommended in one year returning to the annual screening. Findings andrecommendations were conveyed to the patient. BI-RADS CATEGORY: 2 - BENIGN RECOMMENDATION: Return to annual mammography. Return to annual mammography. Mammo Location: [facility], [address] [place] [address], [phone], . -------- FINAL REPORT -------- Dictated By: Toshia Mittal Dictated Date: 05/30/2025 10:52 ET Assigned Physician: Toshia Mittal Reviewed and Electronically Signed By: Toshia Mittal Signed Date: 05/30/2025 11:21 ET Workstation ID: [id number] Transcribed By: Self Edit Transcribed Date: 05/30/2025 10:52 ET us Juan A Name IMG US PROCEDURES Final Result * MG Mammo Digital Diagnostic w Vidal bilat (05/30/2025 10:30 AM EDT) Anatomical Region Laterality Modality Breast Bilateral Mammography 05/30/2025 10:5 2 AM EDT Impressions 05/30/2025 11:21 AM EDT Interval decrease in size of from tiny 2 mm cystic lesion in the right breast. No new suspicious abnormalities. Follow-up mammogram is recommended in one year returning to the annual screening. Findings and recommendations were conveyed to the patient. BI-RADS CATEGORY: 2 - BENIGN RECOMMENDATION: Return to annual mammography. Return to annual mammography. Mammo Location: [facility], [address] [place] [address], [phone], . -------- FINAL REPORT -------- Dictated By: Toshia Mittal Dictated Date: 05/30/2025 10:52 ET Assigned Physician: Toshia Mittal Reviewed and Electronically Signed By: Toshia Mittal Signed Date: 05/30/2025 11:21 ET Workstation ID: [id number] Transcribed By: Self Edit Transcribed Date: 05/30/2025 10:52 ET Narrative 05/30/2025 11:21 AM EDT Bilateral diagnostic mammogram. Targeted right breast ultrasound. CLINICAL: 64 years old, Female, tiny focal asymmetry in the right breast with corresponding mildly complex cystic lesion at 10 o'clock on ultrasound. COMPARISON: Prior examinations, latest from 05/15/2024. FINDINGS: MAMMOGRAPHY TECHNIQUE: Bilateral MLO and CC views were obtained digitally with 2-D C views and 3-D mammogram (digital breast tomosynthesis). Computer-aided detection was utilized in evaluation of this exam (CAD). Tiny focal asymmetry in the right upper outer breast appears to be significantly smaller than on previous examination. There is no evidence of new suspicious mass or architectural distortion. No worrisome calcifications are evident. BREAST DENSITY: B - There are scattered areas of fibroglandular density. ULTRASOUND TECHNIQUE: Targeted ultrasound of the right upper outer breast was performed with attention to the area at 10 o'clock. There is arm interval decrease in size or mildly complex cystic lesion at 10 o'clock, which on today's study measuring 0.2 x 0.2 x 0.2 cm. There is no evidence of morphologically suspicious mass Procedure Note Toshia Mittal MD - 05/30/2025 Bilateral diagnostic mammogram. Targeted right breast ultrasound. CLINICAL: 64 years old, Female, tiny focal asymmetry in the right breastwith corresponding mildly complex cystic lesion at 10 o'clock onultrasound. COMPARISON: Prior examinations, latest from 05/15/2024. FINDINGS: MAMMOGRAPHY TECHNIQUE: Bilateral MLO and CC views were obtained digitally with 2-D Cviews and 3-D mammogram (digital breast tomosynthesis). Computer-aideddetection was utilized in evaluation of this exam (CAD). Tiny focal asymmetry in the right upper outer breast appears to besignificantly smaller than on previous examination. There is no evidence of new suspicious mass or architectural distortion.No worrisome calcifications are evident. BREAST DENSITY: B - There are scattered areas of fibroglandular density. ULTRASOUND TECHNIQUE: Targeted ultrasound of the right upper outer breast wasperformed with attention to the area at 10 o'clock. There is arm interval decrease in size or mildly complex cystic lesion at10 o'clock, which on today's study measuring 0.2 x 0.2 x 0.2 cm. There is no evidence of morphologically suspicious mass IMPRESSION: Interval decrease in size of from tiny 2 mm cystic lesion in the rightbreast. No new suspicious abnormalities. Follow-up mammogram isrecommended in one year returning to the annual screening. Findings andrecommendations were conveyed to the patient. BI-RADS CATEGORY: 2 - BENIGN RECOMMENDATION: Return to annual mammography. Return to annual mammography. Mammo Location: [facility], [address] [place] [address], [phone], . -------- FINAL REPORT -------- Dictated By: Toshia Mittal Dictated Date: 05/30/2025 10:52 ET Assigned Physician: Toshia Mittal Reviewed and Electronically Signed By: Toshia Mittal Signed Date: 05/30/2025 11:21 ET Workstation ID: [id number] Transcribed By: Self Edit Transcribed Date: 05/30/2025 10:52 ET Juan A Name IM BI PROCEDURES Final Result from Last 3 Months Insurance [facility] Care Teams Bone Char Puller Relationship Specialty Start Date End Date Name, MD Juan A [address] [place] [address] PCP - General Internal Medicine 04/04/21
[2025-06-27 12:30] LABS: Alanine Aminotransferase 14 U/L (0-31); Albumin Level 4.8 g/dL (3.5-5.0); Alkaline Phosphatase 64 U/L (39-117); Anion Gap 9 (12-20); Aspartate Amino Transferase 23 U/L (5-31); Blood Urea Nitrogen 14 mg/dL (9-16); Calcium 9.4 mg/dL (8.4-10.2); Carbon Dioxide 27 mmol/L (22-29); Chloride 108 mmol/L (96-108); Cholesterol 222 mg/dL (<200); Estimated Glomerular Filt Rate > 60; HDL Cholesterol 42 mg/dL (>40); Potassium 4.3 mmol/L (3.3-5.1); Sodium 140 mmol/L (135-145); Total Protein 7.6 g/dL (6.5-8.0); Triglycerides 143 mg/dL (<150)
[2025-06-27 13:55] LABS: Free T4 (Free Thyroxine) 1.14 ng/dL (0.71-1.85)
== END 2025-06-27 09:03 | disposition home or self-care (01) ==
LOC: HO.HHCL 09:02
PROVIDERS: PCP Internal Medicine Geriatric Medicine; Visit Provider Internal Medicine Geriatric Medicine
DX: E78.00 Pure hypercholesterolemia, unspecified (principal); E03.9 Hypothyroidism, unspecified
CPT/HCPCS: 36415; 80053; 80061; 84439; 84443